=== PATIENT | female | born 1970 | race Caucasian/White ===

== ENCOUNTER → 2018-06-14 | Outpatient (REF) ==
--- NOTE | 2018-06-15 02:19 | REP ---
Clinical: Pain. Technique: AP, lateral, open mouth, and swimmer's views of the cervical spine. Findings: Alignment is maintained and there is no evidence for acute fracture / compression injury or subluxation. Advanced degenerative disc osteophyte complex at C5-6 and C6-7 includes endplate sclerosis, osteophytosis, and disc space narrowing. Open mouth view demonstrates normal C1-C2 articulation and odontoid process. Impression: Advanced degenerative spondylosis at C5-6 and C6-7. Electronically Signed by Miguel A Patel MD 06/15/2018 02:10 A
--- NOTE | 2018-06-15 02:23 | REP ---
Clinical: Pain . Technique: AP, lateral, and coned-down views. Findings: Alignment and lordosis is maintained. Lateral view suggests calcified disc material at L1-2 level which warrants correlation. Moderate multilevel degenerative changes include subtle spurring with endplate sclerosis and minimal disc space narrowing. Hypertrophic facet changes at the L5-L1 level are also suggested. No acute fracture / compression injury or subluxation identified. Impression: Moderate multilevel degenerative changes. Possible calcified disc material at L1-2 warrants correlation. Electronically Signed by Miguel A Patel MD 06/15/2018 02:14 A
== END ==
LOC: M SMT 13:36
PROVIDERS: ATTEND Internal Medicine
DX: Z02.89 Encounter for other administrative examinations (principal)